=== PATIENT | male | born 1990 | race Caucasian/White ===

== ENCOUNTER 2018-04-16 23:21 | Emergency (ER) | END 2018-04-17 05:02 | disposition home or self-care (01) ==

== ENCOUNTER 2018-04-17 14:09 | Emergency (ER) | END 2018-04-17 17:35 | disposition home or self-care (01) ==

== ENCOUNTER 2018-05-11 10:19 | Emergency (ER) | payer MEDICAID ==
[~2018-05-11] VITALS: Ht 172.7 cm; Wt 77.0 kg
[~2018-05-11 10:19] MED LIST: ACET325T33 PO; ACET500C5 PO; ALBU18HF INHALATION; CIPR-193 PO; IBUP-1542 PO; ONDA4TAB14 PO; RANI150T35 PO
[2018-05-11 10:25] VITALS: BP 140/93; PULSE 77; RESP 19; Ht 172.7 cm; Wt 77.0 kg
[2018-05-11] MEDS ORDERED: LIDOCAINE/MYLANTA 40 ML BTL PO ONE (12:30)
[2018-05-11] MEDS ORDERED: OMEP-28 PO (12:39)
--- NOTE | 2018-05-11 20:59 | ERD ---
ER Documentation Chief Complaint Chief Complaint ABDOMINAL PAIN,RECHECK - NEED WORK NOTES ; PT WAS SEEN IN 04/17/18 HPI 27-year-old male presents for abdominal pain times 3 days. He states that the pain is on the right side and epigastric area.. He states that it feels like a burning sensation. He states that he was here about a month ago and was given treatment which improved his abdominal pain. He states that eating makes the pain worse. Also coughing makes the pain worse. Took Tums with some relief. Patient states that the pain has returned however is not as bad as it was before. He denies any nausea, vomiting, diarrhea. Denies any fevers or chills. Denies chest pain or shortness of breath. ROS All systems reviewed and are negative except as per history of present illness. Medications Home Meds Active Scripts Omeprazole Magnesium (Omeprazole Magnesium) 20 Mg Capsule.dr, 20 MG PO DAILY for heartburn for 14 Days, #14 CAP Prov:BK TRAMMELL DO 05/11/18 Ranitidine Hcl* (Zantac*) 150 Mg Tablet, 150 MG PO BID PRN for EPIGASTRIC PAIN, #10 TAB Prov:LIANA VO MD 04/17/18 Acetaminophen* (Tylenol*) 325 Mg Tablet, 2 TAB PO Q8 PRN for PAIN AND OR ELEVATED TEMP, #20 TAB Prov:LIANA VO MD 04/17/18 Ciprofloxacin Hcl* (Ciprofloxacin Hcl*) 250 Mg Tablet, 250 MG PO BID for 5 Days, #10 TAB Prov:LIANA VO MD 04/17/18 Acetaminophen* (Tylophen*) 500 Mg Capsule, 1 CAP PO Q6H PRN for PAIN AND OR MELODY VATED TEMP, #20 CAP Prov:VITALY NICKERSON PA-C 04/17/18 Ondansetron (Ondansetron Odt) 4 Mg Tab.rapdis, 4 MG PO Q6H PRN for NAUSEA AND/OR VOMITING, #10 TAB Prov:VITALY NICKERSON PA-C 04/17/18 Albuterol Sulfate* (Ventolin HFA*) 18 Gm Hfa.aer.ad, 2 PUFF INHALATION Q4H, #1 INHALER Prov:BONY RECIO NP 04/15/18 Ibuprofen* (Motrin*) 600 Mg Tab, 600 MG PO Q6H PRN for PAIN AND OR ELEVATED TEMP, #30 TAB Prov:BONY RECIO CARNIVAL WORKER 04/15/18 Reported Medications [none] No Conflict Check 06/14/13 [None] No Conflict Check 05/07/10 Allergies Allergies: Coded Allergies: No Known Drug Allergies (Verified Allergy, Mild, 04/15/18) PMhx/Soc Medical and Surgical Hx: pt denies Medical Hx, pt denies Surgical Hx History of Surgery: No Anesthesia Reaction: No Hx Neurological Disorder: No Hx Respiratory Disorders: No Hx Cardiac Disorders: No Hx Psychiatric Problems: No Hx Miscellaneous Medical Probl: No Hx Alcohol Use: No Hx Substance Use: Yes (marijuana) Hx Tobacco Use: No Smoking Status: Never smoker Physical Exam Vitals Vital Signs Date Temp Pulse Resp B/P (MAP) Pulse Ox O2 O2 Flow FiO2 Time Delivery Rate 05/11/18 98.9 77 19 140/93 100 10:25 (109) Physical Exam Const: No acute distress Resp: Clear to auscultation bilaterally Cardio: Regular rate and rhythm, no murmurs Abd: Soft, non distended. Normal bowel sounds, mild tenderness to palpation in the epigastric and right upper quadrant, no McBurney's point tenderness, no Banerjee sign, no rebound or guarding noted Skin: No petechiae or rashes Back: No midline or flank tenderness Ext: No cyanosis, or edema Neur: Awake and alert Psych: Normal Mood and Affect Results 24 hrs Current Medications Medications Dose Sig/Tej Start Time Status Last (Trade) Ordered Route PRN Stop Time Admin Dose Reason Admin 40 ml ONCE ONCE 05/11/18 DC 05/11/18 Miscellaneous PO 12:30 12:22 Medication 05/11/18 12:31 (Gi Cocktail (2)) Procedures/MDM Medical Decision Making: Differential diagnosis includes but not limited to acute gastroenteritis, appendicitis, cholecystitis, pancreatitis. Patient appeared well on physical exam. Nontoxic appearing. Abdominal examination was benign. There is low suspicion for an acute abdomen. Review of record showed that patient was given Zantac for acute gastritis. Patient states that that medication did improve his abdominal pain initially. However the pain returns. Given likely has gastritis. Patient given GI cocktail in the ER with improvement in symptoms. Patient given prescription for omeprazole. Advised to follow up with PCP for possible referral to gastroenterology if abdominal pain persists. Patient advised to follow up with PCP in 1-2 days. Patient advised to return to ED for new or worsening symptoms. Patient stable on discharge from the ED. Disclaimer: Inadvertent spelling and grammatical errors are likely due to EHR/dictation software use and do not reflect on the overall quality of patient care. Also, please note that the electronic time recorded on this note does not necessarily reflect the actual time of the patient encounter. Departure Diagnosis: Primary Impression: Abdominal pain Additional Impression: Heartburn Condition: Fair Patient Instructions: Abdominal Pain Referrals: [facility] YOU HAVE RECEIVED A MEDICAL SCREENING EXAM AND THE RESULTS INDICATE THAT YOU DO NOT HAVE A CONDITION THAT REQUIRES URGENT TREATMENT IN THE EMERGENCY DEPARTMENT. FURTHER EVALUATION AND TREATMENT OF YOUR CONDITION CAN WAIT UNTIL YOU ARE SEEN IN YOUR DOCTORS OFFICE WITHIN THE NEXT 1-2 DAYS. IT IS YOUR RESPONSIBILITY TO MAKE AN APPOINTMENT FOR FOLOW-UP CARE. IF YOU HAVE A PRIMARY DOCTOR --you should call your primary doctor and schedule an appointment IF YOU DO NOT HAVE A PRIMARY DOCTOR YOU CAN CALL OUR PHYSICIAN REFERRAL HOTLINE AT IF YOU CAN NOT AFFORD TO SEE A PHYSICIAN YOU CAN CHOSE FROM THE FOLLOWING [facility] [address] [facility]. [facility] [address] [facility]. [facility] [address] [facility] [facility] [address] [facility]. [facility] [address] [facility]. [facility]. [address] Additional Instructions: Call your primary care doctor TOMORROW for an appointment during the next 1-2 days.See the doctor sooner or return here if your condition worsens before your appointment time. May benefit from gastroenterology referral. BK TRAMMELL DO May 11, 2018 20:59
== END 2018-05-11 12:49 | disposition home or self-care (01) ==
LOC: FTE 10:19
DX: R12 Heartburn (principal)
CPT/HCPCS: Z7502; Z7610; 99282

== ENCOUNTER 2018-11-25 09:29 | Emergency (ER) | payer MEDICAID, OTHER ==
[~2018-11-25] VITALS: Ht 170.2 cm; Wt 77.6 kg
[~2018-11-25 09:29] MED LIST changes: +ACYC800T5 PO; +GABA100C14 PO; +OMEP-28 PO
[2018-11-25 09:33] VITALS: BP 132/79; PULSE 96; RESP 18; Ht 170.2 cm; Wt 77.6 kg
--- NOTE | 2018-11-25 10:16 | ERD ---
ER Documentation Chief Complaint Chief Complaint right flank pain radiating to right abdomen x 1 week HPI Patient is a 28-year-old male, no past medical history, presents to the ER for concerns of right flank pain as well as rash for the last week. Patient states initially he felt burning pain in the affected area. Rash started 2 to 3 days ago. Patient has no fevers, chills, nausea vomiting, dysuria, frequency, urgency, hematuria.No recent travel. No sick contacts. ROS All systems reviewed and are negative except as per history of present illness. Medications Home Meds Active Scripts Gabapentin* (Gabapentin*) 100 Mg Capsule, 100 MG PO TID, #30 CAP Prov:JOAN WAGNER PA-C 11/25/18 Ibuprofen* (Motrin*) 600 Mg Tab, 600 MG PO Q6, #30 TAB Prov:JOAN WAGNER PA-C 11/25/18 Acyclovir* (Zovirax*) 800 Mg Tablet, 800 MG PO 5 TIMES DAILY for 7 Days, TAB Prov:JOAN WAGNER PA-C 11/25/18 Omeprazole Magnesium (Omeprazole Magnesium) 20 Mg Capsule.dr, 20 MG PO DAILY for heartburn for 14 Days, #14 CAP Prov:BK TRAMMELL DO 05/11/18 Ranitidine Hcl* (Zantac*) 150 Mg Tablet, 150 MG PO BID PRN for EPIGASTRIC PAIN, #10 TAB Prov:LIANA VO MD 04/17/18 Acetaminophen* (Tylenol*) 325 Mg Tablet, 2 TAB PO Q8 PRN for PAIN AND OR ELEVATED TEMP, #20 TAB Prov:LIANA VO MD 04/17/18 Ciprofloxacin Hcl* (Ciprofloxacin Hcl*) 250 Mg Tablet, 250 MG PO BID for 5 Days, #10 TAB Prov:LIANA VO MD 04/17/18 Acetaminophen* (Tylophen*) 500 Mg Capsule, 1 CAP PO Q6H PRN for PAIN AND OR ELEVATED TEMP, #20 CAP Prov:VITALY NICKERSON PA-C 04/17/18 Ondansetron (Ondansetron Odt) 4 Mg Tab.rapdis, 4 MG PO Q6H PRN for NAUSEA AND/OR VOMITING, #10 TAB Prov:VITALY NICKERSON PA-C 04/17/18 Albuterol Sulfate* (Ventolin HFA*) 18 Gm Hfa.aer.ad, 2 PUFF INHALATION Q4H, #1 INHALER Prov:BONY RECIO. OPERATOR CONTROL ROOM 04/15/18 Ibuprofen* (Motrin*) 600 Mg Tab, 600 MG PO Q6H PRN for PAIN AND OR ELEVATED TEMP, #30 TAB Prov:BONY RECIO. OPERATOR CONTROL ROOM 04/15/18 Reported Medications [none] No Conflict Check 06/14/13 [None] No Conflict Check 05/07/10 Allergies Allergies: Coded Allergies: No Known Drug Allergies (Verified Allergy, Mild, 04/15/18) PMhx/Soc History of Surgery: No Anesthesia Reaction: No Hx Neurological Disorder: No Hx Respiratory Disorders: No Hx Cardiac Disorders: No Hx Psychiatric Problems: No Hx Miscellaneous Medical Probl: No Hx Alcohol Use: No Hx Substance Use: Yes (marijuana) Hx Tobacco Use: No FmHx Family History: No diabetes Physical Exam Vitals Vital Signs Date Temp Pulse Resp B/P (MAP) Pulse Ox O2 O2 Flow FiO2 Time Delivery Rate 11/25/18 98.2 96 18 132/79 96 09:33 (96) Physical Exam GENERAL: Well-developed, well-nourished male. Appears in no acute distress. HEAD: Normocephalic, atraumatic. EYES: Pupils are equally reactive bilaterally. EOMs grossly intact. No conjunctival erythema. ENT: Moist mucous membranes. No uvula deviation. No kissing tonsils. NECK: Supple. No meningismus. Normal range of motion of the neck. LUNG: Clear to auscultation bilaterally. No rhonchi, wheezing, rales or coarse breath sounds. HEART: Regular rate and rhythm. No murmurs, rubs or gallops. EXTREMITIES: Equal pulses bilaterally. No peripheral clubbing, cyanosis or edema. No unilateral leg swelling. NEUROLOGIC: Alert and oriented. Moving all four extremities without any difficulty. Normal speech. Steady gait. SKIN: Vesicular rash with erythematous base noted in the right flank region in a dermatomal fashion consistent with shingles. Results 24 hrs Current Medications Medications Dose Sig/Tej Start Time Status Last (Trade) Ordered Route PRN Stop Time Admin Dose Reason Admin Ibuprofen 600 mg ONCE ONCE 11/25/18 (Motrin) PO 10:30 7/27/19 10:31 Procedures/MDM MEDICAL DECISION MAKING: This is a 28-year-old male who presents to the ER for concerns of right-sided flank pain as well as a rash to the affected area x1 week. Vital signs were reviewed. Patient was afebrile. Patient is not diabetic. Physical exam findings are consistent with shingles. Patient will be given antivirals. Low suspicion for necrotizing fasciitis, sepsis, gangrene, Nikko-Jeronimo syndrome, toxic epidural necrolysis, abscess, cellulitis, anaphylaxis, allergic reaction. Patient was advised to avoid contact with him children as well as females. PRESCRIPTIONS: Ibuprofen, gabapentin, acyclovir DISCHARGE: At this time, patient is stable for discharge and outpatient management. I have advised the patient to avoid any new products, creams or possible allergens. I have advised the patient to avoid scratching the lesions. I have instructed the patient to follow-up with his/her primary care physician in 1-2 days. If symptoms persist, patient may need to see a hvac installer for further examinations and testing. I have instructed the patient to promptly return to the ER at any time for any new or worsening symptoms including increased pain, fever, redness, swelling, warmth, difficulty breathing or vomiting. The patient and/or family expressed understanding of and agreement with this plan. All questions were answered. Home care instructions were provided. Disclaimer: Inadvertent spelling and grammatical errors are likely due to EHR/dictation software use and do not reflect on the overall quality of patient care. Also, please note that the electronic time recorded on this note does not necessarily reflect the actual time of the patient encounter. Departure Diagnosis: Primary Impression: Shingles Herpes zoster complications: without complications Qualified Codes: B02.9 - Zoster without complications Condition: Fair Patient Instructions: Shingles (Herpes Zoster) Referrals: [facility] (PCP) Additional Instructions: Call your primary care doctor TOMORROW for an appointment during the next 1-2 days.See the doctor sooner or return here if your condition worsens before your appointment time. JOAN WAGNER PA-C Nov 25, 2018 10:16
[2018-11-25] MEDS ORDERED: IBUPROFEN 600 MG TAB PO ONE (10:30)
== END 2018-11-25 10:25 | disposition home or self-care (01) ==
LOC: FTE 09:29
DX: B02.9 Zoster without complications (principal)
CPT/HCPCS: Z7502; Z7610; 99283

== ENCOUNTER 2018-12-05 13:06 | Emergency (ER) | payer MEDICAID, OTHER ==
[~2018-12-05] VITALS: Ht 170.2 cm; Wt 76.4 kg
[2018-12-05 13:12] VITALS: Ht 170.2 cm; Wt 76.4 kg
--- NOTE | 2018-12-05 13:19 | ERD ---
ER Documentation Chief Complaint Chief Complaint recheck for previous dx of shingles, pt requested for return to work note HPI 1-year-old male presents for recheck on painful rash. He was diagnosed with shingles approximate 1 week ago. He presents primarily for clearance to go back to work as his primary care appointment is not for the next 1 to 2 weeks. He feels the symptoms of improved and he wishes to return to work. Denies any fevers, vomiting, shortness of breath, deficits, additional symptoms. ROS All systems reviewed and are negative except as per history of present illness. Medications Home Meds Active Scripts Gabapentin* (Gabapentin*) 100 Mg Capsule, 100 MG PO TID, #30 CAP Prov:JOAN WAGNER PA-C 11/25/18 Ibuprofen* (Motrin*) 600 Mg Tab, 600 MG PO Q6, #30 TAB Prov:JOAN WAGNER PA-C 11/25/18 Acyclovir* (Zovirax*) 800 Mg Tablet, 800 MG PO 5 TIMES DAILY for 7 Days, TAB Prov:JOAN WAGNER PA-C 11/25/18 Omeprazole Magnesium (Omeprazole Magnesium) 20 Mg Capsule.dr, 20 MG PO DAILY for heartburn for 14 Days, #14 CAP Prov:BK TRAMMELL DO 05/11/18 Ranitidine Hcl* (Zantac*) 150 Mg Tablet, 150 MG PO BID PRN for EPIGASTRIC PAIN, #10 TAB Prov:LIANA VO MD 04/17/18 Acetaminophen* (Tylenol*) 325 Mg Tablet, 2 TAB PO Q8 PRN for PAIN AND OR ELEVATED TEMP, #20 TAB Prov:LIANA VO MD 04/17/18 Ciprofloxacin Hcl* (Ciprofloxacin Hcl*) 250 Mg Tablet, 250 MG PO BID for 5 Days, #10 TAB Prov:LIANA VO MD 04/17/18 Acetaminophen* (Tylophen*) 500 Mg Capsule, 1 CAP PO Q6H PRN for PAIN AND OR ELEVATED TEMP, #20 CAP Prov:VITALY NICKERSON PA-C 04/17/18 Ondansetron (Ondansetron Odt) 4 Mg Tab.rapdis, 4 MG PO Q6H PRN for NAUSEA AND/OR VOMITING, #10 TAB Prov:VITALY NICKERSON PA-C 04/17/18 Albuterol Sulfate* (Ventolin HFA*) 18 Gm Hfa.aer.ad, 2 PUFF INHALATION Q4H, #1 INHALER Prov:BONY RECIOGlenda DELI/BAKERY ASSOCIATE 04/15/18 Ibuprofen* (Motrin*) 600 Mg Tab, 600 MG PO Q6H PRN for PAIN AND OR ELEVATED TEMP, #30 TAB Prov:BONY RECIO. DELI/BAKERY ASSOCIATE 04/15/18 Reported Medications [none] No Conflict Check 06/14/13 [None] No Conflict Check 05/07/10 Allergies Allergies: Coded Allergies: No Known Drug Allergies (Verified Allergy, Mild, 04/15/18) PMhx/Soc History of Surgery: No Anesthesia Reaction: No Hx Neurological Disorder: No Hx Respiratory Disorders: No Hx Cardiac Disorders: No Hx Psychiatric Problems: No Hx Miscellaneous Medical Probl: No Hx Alcohol Use: No Hx Substance Use: Yes (marijuana) Hx Tobacco Use: No Smoking Status: Never smoker FmHx Family History: No diabetes, No coronary disease, No other Physical Exam Vitals Vital Signs Date Temp Pulse Resp B/P (MAP) Pulse Ox O2 O2 Flow FiO2 Time Delivery Rate 12/05/18 98.0 80 16 140/89 97 13:12 (106) Physical Exam Const: No acute distress Head: Atraumatic Eyes: Normal Conjunctiva ENT: Normal External Ears, Nose and Mouth. Neck: Full range of motion. No meningismus. Resp: Clear to auscultation bilaterally Cardio: Regular rate and rhythm, no murmurs Abd: Soft, non tender, non distended. Normal bowel sounds Skin: No petechiae or purpura. Resolving lesions on the right flank. No erythema, streaking, fluctuance, purpura. Back: No midline or flank tenderness Ext: No cyanosis, or edema Neur: Awake and alert Psych: Normal Mood and Affect Procedures/MDM Patient presents with signs and symptoms of what appears to be shingles resolving. Lesions are dry and his case is not severe. He will be given clearance to return to work with return precautions for fevers, vomiting, shortness of breath, new worsening symptoms. The patient was stable with no new complaints during the ER course. Clinically, there is no current evidence to suggest meningitis, sepsis, acute abdomen, pneumonia, stroke, acute coronary syndrome, pulmonary embolism, aortic dissection or any other emergent condition appearing to require further evaluation or hospitalization. Patient counseled regarding my diagnostic impression and care plan. Prior to discharge all questions answered. Pt agrees with treatment plan and understands strict return precautions. Pt is instructed to follow up with primary care provider within 24- 48 hours. Precautionary instructions provided including instructions to return to the ER if not improving or for any worsening or changing symptoms or concerns. Disclaimer: Inadvertent spelling and grammatical errors are likely due to EHR/dictation software use and do not reflect on the overall quality of patient care. Also, please note that the electronic time recorded on this note does not necessarily reflect the actual time of the patient encounter. Departure Diagnosis: Primary Impression: Shingles Herpes zoster complications: without complications Qualified Codes: B02.9 - Zoster without complications Condition: Stable Patient Instructions: Shingles (Herpes Zoster) Additional Instructions: Recheck for new or worsening symptoms with primary care doctor. JO ROMO MD Dec 05, 2018 13:19
== END 2018-12-05 13:15 | disposition home or self-care (01) ==
LOC: E/R 13:06
DX: B02.9 Zoster without complications (principal)
CPT/HCPCS: 99282